=== PATIENT | female | born 1990 | race Caucasian/White ===

== ENCOUNTER → 2019-01-28 10:40 | Outpatient (CLI) | payer OTHER, MEDICAID, SELFPAY ==
[2019-01-29 13:59] LABS: Strep Grp B PCR POS for Grp B Strep
== END ==
DX: Z34.83 Encounter for supervision of other normal pregnancy, third trimester (principal); Z3A.35 35 weeks gestation of pregnancy
CPT/HCPCS: 87653

== ENCOUNTER → 2019-02-21 08:31 | Outpatient (CLI) | payer OTHER, MEDICAID, SELFPAY ==
--- NOTE | 2019-02-21 08:32 | DI.US.S_ITS ---
PROCEDURE: US OB LIMITED INDICATIONS: CHECK PLACENTAL LOCATION OUTSIDE/PRIOR DATING DATA: Last menstrual period (LMP): Unknown. LMP-based estimated date of delivery (EMILY): Unknown. First dating scan (date and location): 12/27/18. Estimated date of delivery (EMILY) from first dating scan: 03/05/19. TECHNIQUE: Real-time scanning was performed of the fetus, with image documentation. Endovaginal scanning: Performed COMPARISON: [facility], US, US OB >= 14 WEEKS FETUS, 02/21/2019, 8:18. [facility], US, US OB >= 14 WEEKS FETUS, 02/17/2019, 12:03. [facility], US, US OB >= 14 WEEKS FETUS, 02/10/2019, 11:32. [facility], US, US OB >= 14 WEEKS FETUS, 01/28/2019, 10:52. [facility], US, US OB >= 14 WEEKS FETUS, 12/27/2018, 10:00. FINDINGS: A single living intrauterine gestation is present. Presentation: Vertex. Placenta: Placental position is posterior, and there is marginal placenta previa. Amniotic fluid index: 16.4 cm, normal range is 5-24 cm. heart rate: 147 beats per minute. Maternal cervical canal: 4.8 cm long. Normal lower limit is 2.5 cm. IMPRESSION: Single living intrauterine fetus in vertex presentation. Marginal placenta previa. Dictated by: Tarun Maldonado M.D. on 02/21/2019 at 12:27 Approved by: Tarun Maldonado M.D. on 02/21/2019 at 12:30
== END ==
DX: Z34.83 Encounter for supervision of other normal pregnancy, third trimester (principal); Z3A.38 38 weeks gestation of pregnancy
CPT/HCPCS: 76815; 76817

== ENCOUNTER 2019-03-03 11:15 | Inpatient (IN) | payer OTHER, MEDICAID, SELFPAY ==
[2019-03-03] VITALS (7 sets, daily range): BP systolic 106–129; BP diastolic 56–71; PULSE 51–60; RESP 12–20; TEMP 36.4–36.5; O2SAT 100
[2019-03-03] MEDS: LACTATED RINGERS 1,000 ML 1000 ML IV (12:30)
[2019-03-03] MEDS: CITRIC ACID/SODIUM CITRATE 15 ML SOLUTION 30 ML PO (13:12)
[2019-03-03 13:18] LABS: Add Manual Diff / Slide Review NO; Basophils Absolute Auto 0 /uL (0-100); Basophils Percent Auto 0.4 % (0-2); Eosinophils Absolute Auto 0 /uL (0-450); Eosinophils Percent Auto 0.5 % (2-4); Hematocrit 31.3 % (36-46); Hemoglobin 10.2 g/dL (12.0-16.0); Lymphocytes Absolute Auto 1700 /uL (1100-4500); Lymphocytes Percent Auto 27.5 % (25-40); Mean Corpuscular HGB Conc 32.6 % (30-36); Mean Corpuscular Hemoglobin 24.6 PG (26-34); Mean Corpuscular Volume 75.5 fL (80-100); Monocytes Absolute Auto 400 /uL (0-900); Monocytes Percent Auto 7.1 % (3-14); Neutrophils Absolute Auto 4000 /uL (1500-7000); Neutrophils Percent Auto 64.5 % (50-75); Platelet Count 219 X10^3/uL (150-400); Red Blood Cell Count 4.15 X10^6/uL (4.0-5.2); Red Cell Distribution Width 16.2 % (11.6-14.8); White Blood Cell Count 6.2 X10^3/uL (4.5-11.0)
--- NOTE | 2019-03-03 14:41 | SUR.OPER ---
Supine on Padded OR bed, head on pillow, safety belt at thigh, arms secured on padded arm boards at <90 degrees abduction. Bump under right buttock. Legs uncrossed with pillow under knees, gel pad to heels, tape over blanket to lower legs.
[2019-03-03] MEDS: CEFOTETAN 2 GM/50 ML PIGGYBACK IV (14:52)
[2019-03-03] MEDS: ACETAMINOPHEN IV 1,000 MG/100 ML VIAL 400 MG IV (15:31)
--- NOTE | 2019-03-03 15:40 | SUR.OPER ---
viable baby boy born at 1521, placenta at 1523, 8/9 Cord blood and placenta sent to OB with OB rn
--- NOTE | 2019-03-03 16:15 | P.OP_ITS ---
Operative Date/Time/Diagnoses Date of procedure: 03/03/19 Time of procedure: 16:15 Pre-op diagnosis: Term intrauterine Placenta previa Post-op diagnosis: same Procedure & Clinicians Procedure: Procedures Operation Date: 03/03/19 14:15 Actual Procedures Side Surgeon p Section Jose Issa MD Indications: Term intrauterine Placenta previa Surgeon: Jose Issa [employer] Officer: Mariel Marie Anesthesia Type: Spinal Operative Notes Findings: Live-born with scores nine and nine Placenta previa posterior Normal uterus tubes and ovaries Closure Type: primary Specimen(s): none Applied: catheter Estimated blood loss (mL): 1,000 Blood products transfused: none Procedure in detail: The patient was placed supine upon the operating table. Anesthesia had been applied in the routine fashion for spinal anesthesia. Patient was draped prevent parous in usual fashion. The patient has been explicitly been taped and suspend her fashion. Transverse incision was made. Subcutaneous tissue was incised to the fascia. All bleeders were meticulously fulgurated. The fascia was incised sharp knife transversely in each direction. The pyramidalis muscles were incised in the midline. This was widened by blunt finger dissection. Peritoneum was picked up and incised and widened by blunt finger dissection. The bladder blade was set in place. The peritoneum over the lower uterine segment was picked up and incised laterally. Bladder was taken down. The bladder blade was placed. Transverse scoring incision was made across the lower uterine segment perforation this met with considerable bleeding. Decision was then made and the endometrial cavity opened and widened by blunt finger dissection. Baby's head was high and almost in a transverse position. The head was brought down into the pelvis. The suction apparatus cup was then applied with two pop offs baby was delivered with scores reportedly at nine at 1 minute nine at 5 minutes in good condition. Cord gases were obtained. These were normal and are documented in the chart. The placenta was removed manually and was indeed a low-lying posterior placenta previa. All the uterus was exteriorized. All membranes were massaged from the endometrial cavity. Tubes and ovaries appeared to be normal. The lateral edges of the incision were grasped with [place] clamps. The uterine incision was closed in imbricating fashion using a two layer technique with 1. Chromic suture. No bleeding points were seen. Visceral peritoneum was closed with running two 0 chromic suture. The uterus was placed back in the peritoneal cavity. Lateral edges of the peritoneum were grasped and the incision closed with a running two 0 chromic suture. No bleeding points were seen the area was copiously irrigated. 2 horizontal mattress 1. Vicryl suture used to close the pyramidalis muscles. 2 continuous 1. Vicryl suture used to close the fascia. No bleeding points were seen. Area was copiously irrigated. The subcutaneous tissue was closed in two layers. 1st layer was closed with interrupted three 0 Vicryl suture. 2nd with a running horizontal mattress three 0 Vicryl suture. The skin was further approximated with Steri-Strips. At the end of the procedure there was no bleeding. The urine was clear. Patient was taken to the recovery room in a satisfactory condition. Complications: none Post-operative Condition: stable Disposition: PACU Plan for aftercare: 2 obstetrical
--- NOTE | 2019-03-03 16:31 | SUR.PHASEI ---
REPORT CALLED TO LEAH MULLEN IN CENTER. PT IN STABLE CONDITION, VSS. PT LAYING IN BED WITH EYES OPEN AND TALKING TO RN. PT DENIES ANY PAIN/DISCOMFORT AT THIS TIME. PT WILL BE TRANSFERRED TO CENTER.
--- NOTE | 2019-03-03 16:44 | SUR.PHASEI ---
PT TRANSFERRED TO CENTER IN STABLE CONDITION. PT SIGNIFICANT OTHER AT BEDSIDE. BEDSIDE REPORT GIVEN TO LEAH MARTINI AND TRANSFERRED CARE OF PT TO HER AT THAT TIME.
[2019-03-03] MEDS: METOCLOPRAMIDE 10 MG/2 ML INJ IV (18:36)
--- NOTE | 2019-03-03 18:43 | P.HPNB_ITS ---
History History The infant was delivered by primary section at 3:21 p.m. on March 03, [address] [facility] in the operating room. Rupture membranes was for 1 minutes, at the time of procedure. Fluid was clear. Indication for was a placenta previa follow during the . Mom tells me otherwise the was normal. The infant had of 8 at 1 minute with 1 off for respiratory effort and 1 off for color. Infant had of 9 at 5 minutes with 1 off for color. The patient had a 3 vessel umbilical cord and no nuchal cord. Mom is a 28-year-old 5 para now for 1 female. Final gestational age 39 and 5/7 weeks. Mom denies use of alcohol, tobacco, and illicit drugs during . Maternal laboratory data includes: Blood type: O positive, antibody screen negative Syphilis serology: Nonreactive Rubella: [employer] B strep: Positive HIV: Negative Hepatitis-B surface antigen: Negative Exam - Pediatric Vital Signs Vital Signs: Vital Signs Temp Pulse Resp BP Pulse Ox 97.5 F L 56 L 18 113/56 L 100 03/03/19 16:05 03/03/19 16:05 03/03/19 16:05 03/03/19 16:05 03/03/19 16:05 General: Patient is very alert and calm. He is sucking on his hands. weight: 7 lb 0.2 oz which is 3180 g. Length: 19.6 in which is 49.8 cm Head circumference: 13.78 in which is 35 cm Vital signs: Temperature: 98.2?. Heart rate: 140. Respiratory rate: 54. Head: Normocephalic with soft anterior fontanel. Eyes: Normal red reflex x2 Nose: Patent with no discharge Ears: Normal with patent canals Mouth and throat: No ankyloglossia, palatal defects, or posterior pharyngeal abnormalities noted. Neck: No unusual masses Chest wall: Symmetrical. No retractions. Heart: Regular rate and rhythm with no murmur. Normal S2 split. Plus two femoral pulses. Lungs: Clear with normal breath sounds Abdomen: Soft. No masses or tenderness noted. Bowel sounds present. Hips: Excellent range of motion bilaterally Skin: [place] with good turgor. No unusual rashes or skin lesions. External genitalia: Normal penis and testes Anus: Patent Objective Labs Result Diagrams: 03/03/19 12:20 Labs: Laboratory Results - last 24 hr 03/03/19 03/03/19 12:20 12:20 WBC 6.2 RBC 4.15 Hgb 10.2 L Hct 31.3 L MCV 75.5 L MCH 24.6 L MCHC 32.6 RDW 16.2 H Plt Count 219 Neut % (Auto) 64.5 Lymph % (Auto) 27.5 [place] % (Auto) 7.1 Eos % (Auto) 0.5 L Baso % (Auto) 0.4 Neut # (Auto) 4000 Lymph # (Auto) 1700 [place] # (Auto) 400 Eos # (Auto) 0 Baso # (Auto) 0 Blood Type O Positive Antibody Screen Negative Crossmatch See Detail Assessment & Plan Assessment and plan (1) Benign and innocent cardiac murmurs: Current visit: No Status: Acute (2) [place] infant of 39 completed weeks of gestation: Current visit: Yes Status: Acute Assessment & Plan narrative: 1. 39 and 5/7 weeks male . Encourage frequent feeding. Patient is taking formula. Continue to monitor vital signs. 2. Primary due to placenta previa.
[2019-03-03] MEDS: OXYCODONE/ACETAMINOPHEN 5/325 TABLET 2 TAB PO (21:20)
[2019-03-04] MEDS: OXYCODONE/ACETAMINOPHEN 5/325 TABLET 2 TAB PO ×5 (05:32→22:07)
[2019-03-04 06:05] LABS: Add Manual Diff / Slide Review NO; Basophils Absolute Auto 0 /uL (0-100); Basophils Percent Auto 0.3 % (0-2); Eosinophils Absolute Auto 0 /uL (0-450); Eosinophils Percent Auto 0.3 % (2-4); Hematocrit 24.8 % (36-46); Hemoglobin 8.1 g/dL (12.0-16.0); Lymphocytes Absolute Auto 1500 /uL (1100-4500); Lymphocytes Percent Auto 27.1 % (25-40); Mean Corpuscular HGB Conc 32.9 % (30-36); Mean Corpuscular Hemoglobin 24.9 PG (26-34); Mean Corpuscular Volume 75.7 fL (80-100); Monocytes Absolute Auto 400 /uL (0-900); Monocytes Percent Auto 6.7 % (3-14); Neutrophils Absolute Auto 3600 /uL (1500-7000); Neutrophils Percent Auto 65.6 % (50-75); Platelet Count 164 X10^3/uL (150-400); Red Blood Cell Count 3.28 X10^6/uL (4.0-5.2); Red Cell Distribution Width 16.2 % (11.6-14.8); White Blood Cell Count 5.5 X10^3/uL (4.5-11.0)
[2019-03-04 06:14] VITALS: BP 117/71; PULSE 66; RESP 16; TEMP 36.8
--- NOTE | 2019-03-04 07:48 | PM.OBPN.1 ---
Subjective - OB Subjective Patient comments: no complaints, pain well controlled, tolerating diet and flatus present baby status: doing well and bottle feeding well feeding status: exclusively bottle feeding Narrative: Patient is approximately 12 hours post section for placenta previa. There was substantial blood loss at time of section. The baby however did well. The mother's matter crit this morning is 248. It was 30% antepartum. Patient is off IVs. Hep-Lock in place. [place] is out in the patient has voided. She is ambulating. She is taking p.o. well Date Patient Seen: 03/04/19 Time Patient Seen: 07:49 Exam Vital Signs (past 8 hours): Oxygen Delivery Method Room Air Narrative Exam Narrative: Abdomen is soft and nontender Bowel sounds are present Incision looks great with Aquacel dressing Lochia scant Extremities without edema or tenderness Objective Labs Result Diagrams: 03/04/19 05:50 Labs: Laboratory Results - last 24 hr 03/03/19 03/03/19 03/04/19 12:20 12:20 05:50 WBC 6.2 5.5 RBC 4.15 3.28 L Hgb 10.2 L 8.1 L Hct 31.3 L 24.8 L MCV 75.5 L 75.7 L MCH 24.6 L 24.9 L MCHC 32.6 32.9 RDW 16.2 H 16.2 H Plt Count 219 164 Neut % (Auto) 64.5 65.6 Lymph % (Auto) 27.5 27.1 [place] % (Auto) 7.1 6.7 Eos % (Auto) 0.5 L 0.3 L Baso % (Auto) 0.4 0.3 Neut # (Auto) 4000 3600 Lymph # (Auto) 1700 1500 [place] # (Auto) 400 400 Eos # (Auto) 0 0 Baso # (Auto) 0 0 Blood Type O Positive Antibody Screen Negative Crossmatch See Detail Assessment & Plan Assessment and Plan (1) Benign and innocent cardiac murmurs: Problem details: 1. day post section Plan is standard recovery Will use Lovenox in addition to compression stocking Status: Acute Current Visit: No (2) infant of 39 completed weeks of gestation: Status: Acute Current Visit: Yes Time Spent With Patient Time: Total time spent is greater than 50% in coordination of care (as documented) at patient's floor/unit and/or counseling patient: Time with patient: less than 15 minutes
[2019-03-04] MEDS: DOCUSATE 250 MG CAPSULE PO (08:43)
[2019-03-04] MEDS: ENOXAPARIN 40 MG/0.4 ML SYRINGE SUBCUT (08:43)
[2019-03-04] MEDS: FERROUS GLUCONATE 324 MG TABLET PO (08:43)
[2019-03-05] MEDS: OXYCODONE/ACETAMINOPHEN 5/325 TABLET 2 TAB PO ×2 (03:08→09:51)
[2019-03-05] MEDS: FERROUS GLUCONATE 324 MG TABLET PO (08:53)
[2019-03-05] MEDS: DOCUSATE 250 MG CAPSULE PO (08:53)
[2019-03-05] MEDS: ENOXAPARIN 40 MG/0.4 ML SYRINGE SUBCUT (08:54)
--- NOTE | 2019-03-05 09:09 | PM.OBDS.1 ---
Discharge Providers Provider Date of admission: 03/03/19 11:15 Discharge Date: 03/05/19 Consults: 03/03/19 16:27 Consult to Bookkeeping Machine Mechanic Routine Comment: Discharge provider: Jose Issa MD Summary Hospital Course Date Patient Seen: 03/05/19 Time Patient Seen: 09:10 Procedures: Spinal anesthesia Primary low segment section current time Hospital Course: The patient is a 28-year-old four now para four who presented with placenta previa. Patient was taken to surgery and under spinal anesthesia underwent a primary low segment section. Post delivery the patient did well. She remained afebrile with stable vital signs and was progressively alimented and ambulated. She was discharged home for follow-up one week for Aquacel dressing rim Peripartum Data Delivery Method: Section complications: none Discharge Diagnosis (1) Benign and innocent cardiac murmurs: Status: Acute Problem Details: 1. day post section Plan is standard recovery Will use Lovenox in addition to compression stocking (2) [place] infant of 39 completed weeks of gestation: Status: Acute Status at Discharge Cognitive/behavioral status at discharge: oriented Functional status at discharge: independent ambulation Overall status at discharge: patient is progressing back to baseline Time Spent with Patient Time attestation: Total time spent providing and/or coordinating discharge services: Objective Labs Result Diagrams: 03/04/19 05:50 Exam Vital Signs (past 8 hours): Oxygen Delivery Method Room Air Narrative Exam Narrative: Fundus U minus four Aquacel dressing looks fine Lochia scant Discharge Plan Discharge Plan Patient Disposition: Home Discharge Med Rec/Prescriptions Prescriptions: New docusate sodium 250 mg Capsule 250 mg PO DAILY Qty: 10 RF: 0 oxycodone 5 mg Tablet 10 mg PO Q3HR PRN (Reason: Pain, Severe (7-10)) Qty: 10 RF: 0 ferrous gluconate 324 mg (38 mg iron) Tablet 324 mg PO DAILY Qty: 30 RF: 0 Discontinued omeprazole 20 mg capsule,delayed release(DR/EC) 20 mg PO DAILY Qty: 20 RF: 3 Follow up/Referrals: Jose Issa MD [Physician] - 1 Week (For Aquacel dressing removed) Provider Discharge Instructions Diet: Diet as Tolerated Activity: Up ad davonte No stairs for one week May shower Skin/Wound/Dressing Care Report to your healthcare provider any signs of infection, such as:: chills, fever, increased pain, unusual drainage and unusual redness Dressing: Aquacel dressing to be removed in one week Other wound treatment: Keep area clean and dry
== END 2019-03-05 11:46 | disposition home or self-care (01) | DRG 540 ==
PROC: 10D00Z1 Extraction of Products of Conception, Low, Open Approach (ICD-10-PCS; CPT 59514; principal; 2019-03-03 14:15)
DX: O44.03 Complete placenta previa NOS or without hemorrhage, third trimester (principal); Z3A.39 39 weeks gestation of pregnancy; Z37.0 Single live birth; D62 Acute posthemorrhagic anemia; D64.9 Anemia, unspecified; O99.02 Anemia complicating childbirth
CPT/HCPCS: 36415; 59050; 59514; 85025; 86850; 86900; 86901; J0131; J1650; J2274; J2590; J2765